=== PATIENT | male | born 1980 | race Two or more races ===

== ENCOUNTER 2017-10-18 21:25 | Emergency (ER) | payer OTHER ==
[~2017-10-18] VITALS: Ht 177.8 cm; Wt 91.2 kg
== END 2017-10-18 22:02 | disposition home or self-care (01) ==
LOC: FSED 21:25 → EDBD 21:25 → FSED 22:02
DX: H57.11 Ocular pain, right eye (principal); S05.01XA Injury of conjunctiva and corneal abrasion without foreign body, right eye, initial encounter; W21.02XA Struck by soccer ball, initial encounter; Y93.66 Activity, soccer; Y92.322 Soccer field as the place of occurrence of the external cause
CPT/HCPCS: 99283